=== PATIENT | female | born 2000 | race Caucasian/White ===

== ENCOUNTER 2023-05-24 14:36 | Observation (INO) | payer BC ==
[~2023-05-24 14:36] MED LIST: Iopamidol 300 61% 100 ML VIAL FS ONE
[2023-05-24 15:33] LABS: #Monocytes 0.4 10x3/uL (0.0-1.1); #Neutrophils 7.6 10x3/uL (1.5-8.4); %Basophils 0.2 % (0.0-2.0); %Eosinophils 0.2 % (0.0-6.0); %Lymphocytes 20.3 % (18.0-47.0); %Monocytes 4.1 % (0.0-10.0); %Neutrophils 74.9 % (40.0-75.0); Hematocrit 40.5 % (34.9-44.5); Hemoglobin 13.8 g/dL (12.0-15.5); Mean Corpuscular HGB CONC 34.1 g/dL (32.0-36.0); Mean Corpuscular Hemoglobin 29.6 pg (27.0-33.0); Mean Corpuscular Volume 86.9 fl (81.6-98.3); Mean Platelet Volume 9.7 fl (7.4-10.4); Platelet Count 324 10x3/uL (150-450); Red Blood Cell (RBC) Count 4.66 10x6/uL (3.90-5.03); White Blood Cell (WBC) Count 10.2 10x3/uL (3.5-10.5)
[2023-05-24 15:40] LABS: BHCG - Serum Negative (NEGATIVE); Pregs Control Background? CLEAR/WHITE (CLR/WHITE); Pregs Control Bar Appear? YES (CONTROL BAR)
[2023-05-24 15:49] LABS: ALT (SGPT) 21 U/L (8-55); AST (SGOT) 23 U/L (5-34); Albumin 4.6 g/dL (3.5-5.0); Alkaline Phosphatase 64 U/L (40-110); Anion Gap 13 mmol/L (10-20); BUN (Urea Nitrogen) 8 mg/dL (7.0-18.7); Bilirubin, Total 0.6 mg/dL (0.2-1.2); Calc. Creatinine Clearance 0 mL/min (70-130); Calcium 9.8 mg/dL (7.8-10.44); Carbon Dioxide 22 mmol/L (22-29); Chloride 106 mmol/L (98-107); Estimated GFR 111; Globulin 3.2 g/dL (2.4-3.5); Glucose 88 mg/dL (70-105); Lipase 16 U/L (8-78); Potassium 4.1 mmol/L (3.5-5.1); Protein, Total 7.8 g/dL (6.0-8.3); Sodium 137 mmol/L (136-145)
[2023-05-24] MEDS ORDERED: Piperacillin/Tazobactam 3.375 GM VIAL ONE (19:36)
[2023-05-24 21:47] VITALS: BMI 22.4
[2023-05-24] MEDS ORDERED: Morphine 2 MG/ML VIAL SLOW IVP PRN (22:02)
[2023-05-24] MEDS ORDERED: Ketorolac Tromethamine 30 MG/ML VIAL IVP PRN (22:02)
[2023-05-24] MEDS ORDERED: Lactated Ringer's 1,000 ML IV SCH (22:15)
[2023-05-24] MEDS ORDERED: Piperacillin/Tazobactam 3.375 GM in Sodium Chloride 0.9% 100 ML IVPB SCH (23:59)
[2023-05-25] MEDS ORDERED: Piperacillin/Tazobactam 3.375 GM in Sodium Chloride 0.9% 100 ML IVPB SCH ×2 (04:00→12:00)
[2023-05-25] MEDS ORDERED: FLU VACC QS2023-24(6MOS UP)/PF 60 MCG/0.5 ML SYRINGE IM ONE (09:00)
[2023-05-25] MEDS ORDERED: Scopolamine 1 mg/72 hour Patch TD SCH (10:00)
[2023-05-25] MEDS ORDERED: Ketorolac Tromethamine 30 MG/ML VIAL IVP SCH (10:00)
[2023-05-25] MEDS ORDERED: Ketorolac Tromethamine 30 MG/ML VIAL ONE (10:02)
[2023-05-25] MEDS ORDERED: Scopolamine 1 mg/72 hour Patch ONE (10:02)
[2023-05-25] MEDS ORDERED: traMADol HCl 50 MG TAB PO PRN (10:33)
[2023-05-25] MEDS ORDERED: Acetaminophen 500 MG TAB PO PRN (10:33)
[2023-05-25] MEDS ORDERED: Acetaminophen 500 MG TAB PO SCH (11:00)
[2023-05-25] MEDS ORDERED: EPINEPHrine 1 MG/ML AMP ONE (11:16)
[2023-05-25] MEDS ORDERED: Bupivacaine PF 0.5% 30 ML VIAL ONE (11:16)
[2023-05-25 13:39] VITALS: BP 99/58; TEMP 97.9
[2023-05-25] MEDS ORDERED: Ibuprofen 600 MG TAB PO PRN (18:00)
== END 2023-05-25 14:45 | disposition home or self-care (01) ==
LOC: CSHERS 14:36 → CSHTELE 19:35
PROVIDERS: ADMIT Specialist; ATTEND Specialist
PROC: 0DTJ4ZZ Resection of Appendix, Percutaneous Endoscopic Approach (ICD-10-PCS; principal; 2023-05-25)
DX: K35.80 Unspecified acute appendicitis (principal); F17.200 Nicotine dependence, unspecified, uncomplicated; Z91.040 Latex allergy status
CPT/HCPCS: 36415; 74177; 80053; 83690; 84703; 85025; 88304; 96375; 96376; A4649; C1713; G0378; J0171; J1885; J2272; J2543; J3490; J7120; Q9967; S0020